=== PATIENT | male | born 1945 | race African-American/Black ===

== ENCOUNTER 2021-05-24 15:08 | Emergency (ER) | payer MEDICARE, BC ==
[~2021-05-24] VITALS: Ht 188 cm; Wt 82.0 kg
[2021-05-24] MEDS ORDERED: ACETAMINOPHEN 325MG TABLET PO STA (17:02)
[2021-05-24] MEDS ORDERED: SODIUM CHLORIDE 0.9% 500 ML IV ONE (17:15)
[2021-05-24 17:24] LABS: EOSINOPHILS % 2.2 % (0.0-5.0); HEMATOCRIT. 43.3 % (42.0-52.0); HEMOGLOBIN. 14.8 g/dL (14.0-18.0); LYMPHOCYTES % 37.4 % (20.0-50.0); MEAN CORPUSCULAR VOLUME 87.8 fL (80.0-94.0); MEAN PLATELET VOLUME 8.1 fl (7.4-10.4); NEUTROPHILS % 50.4 % (40.0-76.0); PLATELET 134 x1000/uL (130-400); RED BLOOD CELL COUNT 4.93 mill/uL (4.7-6.1); RED CELL DISTRIBUTION WIDTH 13.5 % (11.6-14.6)
[2021-05-24 17:31] LABS: CHLORIDE 104 mEq/L (98-107)
[2021-05-24 19:33] VITALS: BP 104/69
[2021-06-06] MEDS ORDERED: OMEP40CA12 MT (17:52)
== END 2021-05-24 19:34 | disposition home or self-care (01) ==
LOC: ER 15:08
DX: R51.9 Headache, unspecified (principal); Z98.890 Other specified postprocedural states
CPT/HCPCS: 36415; 70450; 80053; 85025; 99284; J7030; J7040